=== PATIENT | female | born 1930 | race Caucasian/White ===

== ENCOUNTER → 2016-07-24 | Outpatient (REF) | payer MEDICARE, MEDICAID ==
[~2016-07-24] MED LIST: /ALEN70TA; ASPI1TAB PO; ASPI81TA3; BENZ100C5 PO; BEPR1.5D2 OU; BOOSLIQ PO; BRIM1OPD; BRIM1OPD OU; CALC600T28 PO; CIPR500T3 PO; COSO1SOL3 OD; COSOPT; DORZ2SOL5 OU; FLAG500T PO; LACT3000 PO; LACTAID; LEVO25TA2; LEVO25TA5 PO; LEVO500T32 PO; LIDOPOW; LORA10TA2 PO; METO5TAB2 PO; MULTTAB26 PO; OCEA0.654; OMEP20CA3 PO; OMEP40CA2 PO; PLAV75TA2; PREDPOW16; PREG50CA; PREV30TA; THERGRAN; VIT; VITA400C; VITMTA PO; XALA0.002 OU; XALATAN; XIBROM; [UNRECOGNIZED DRUG - CODE]; [UNRECOGNIZED DRUG - OTHER]; [UNRECOGNIZED DRUG - OTHER]
[2016-07-24 16:21] LABS: ALBUMIN 2.8 GM/DL (3.2-5.2); ALKALINE PHOSPHATASE 111 U/L (45-117); ALT/SGPT 28 U/L (12-78); ANION GAP 10 MEQ/L (8-16); AST/SGOT 23 U/L (15-37); BASO % 0.2 % (0.0-1.0); BILIRUBIN,TOTAL 1.5 MG/DL (0.2-1.0); BLOOD UREA NITROGEN 20 MG/DL (7-18); CALCIUM LEVEL 8.3 MG/DL (8.8-10.2); CARBON DIOXIDE LEVEL 27 MEQ/L (21-32); CHLORIDE LEVEL 93 MEQ/L (98-107); CREATININE FOR GFR 0.58 MG/DL (0.55-1.02); EOS % 0.1 % (0.0-3.0); GLOMERULAR FILTRATION RATE > 60.0 (>32); GLUCOSE, FASTING 108 MG/DL (83-110); LARGE UNSTAINED CELL # 0.1 K/mm3 (0.0-0.4); LARGE UNSTAINED CELL % 0.6 % (0.0-4.0); LYMPH % 5.6 % (24.0-44.0); MEAN CORPUSCULAR HEMOGLOBIN 28.5 pg (27.0-33.0); MEAN CORPUSCULAR HGB CONC 31.9 g/dl (32.0-36.5); MEAN CORPUSCULAR VOLUME 89.1 fl (80.0-96.0); MONO # 1.1 K/mm3 (0.0-0.8); MONO % 6.4 % (0.0-5.0); NEUTROPHILS # 14.3 K/mm3 (1.8-7.7); NEUTROPHILS % 87.1 % (36.0-66.0); PLATELET COUNT, AUTOMATED 321 k/mm3 (150-450); POTASSIUM SERUM 4.2 MEQ/L (3.5-5.1); RED CELL DISTRIBUTION WIDTH 14.1 % (11.5-14.5); SODIUM LEVEL 130 MEQ/L (136-145); TOTAL PROTEIN 6.8 GM/DL (6.4-8.2); WHITE BLOOD COUNT 16.4 K/mm3 (4.0-10.0)
== END ==
LOC: M LABDRAW1 14:11
PROVIDERS: ATTEND Family Medicine
DX: R05 Cough (principal)

== ENCOUNTER 2016-07-26 08:52 | Inpatient (IN) | payer MEDICARE, MEDICAID ==
[~2016-07-26] VITALS: Ht 154.9 cm; Wt 47.9 kg
[~2016-07-26 08:52] MED LIST changes: -BENZ100C5 PO; -BEPR1.5D2 OU; -DORZ2SOL5 OU; -LEVO500T32 PO; -OMEP20CA3 PO; -VITMTA PO
[2016-07-26] MEDS ORDERED: BENZ100C5 PO (09:16)
[2016-07-26] MEDS ORDERED: LEVO500T32 PO (09:16)
[2016-07-26] MEDS ORDERED: ALBUTEROL SULFATE 2.5 MG/0.5 ML INH NEB SOLN INH ONE (10:30)
[2016-07-26] MEDS ORDERED: methylPREDNISolone INJ 125 MG/2 ML VIAL (J2930) IV ONE (10:30)
[2016-07-26 10:41] LABS: BASO % 0.2 % (0.0-1.0); EOS % 0.1 % (0.0-3.0); LARGE UNSTAINED CELL # 0.1 K/mm3 (0.0-0.4); LARGE UNSTAINED CELL % 0.8 % (0.0-4.0); LYMPH % 7.1 % (24.0-44.0); MEAN CORPUSCULAR HEMOGLOBIN 28.7 pg (27.0-33.0); MEAN CORPUSCULAR HGB CONC 32.2 g/dl (32.0-36.5); MEAN CORPUSCULAR VOLUME 89.1 fl (80.0-96.0); MONO # 0.7 K/mm3 (0.0-0.8); MONO % 5.6 % (0.0-5.0); NEUTROPHILS # 10.9 K/mm3 (1.8-7.7); NEUTROPHILS % 86.2 % (36.0-66.0); PLATELET COUNT, AUTOMATED 360 k/mm3 (150-450); WHITE BLOOD COUNT 12.6 K/mm3 (4.0-10.0)
[2016-07-26 10:50] LABS: ALBUMIN 2.5 GM/DL (3.2-5.2); ALBUMIN/GLOBULIN RATIO 0.57 (1.00-1.93); ALKALINE PHOSPHATASE 115 U/L (45-117); ALT/SGPT 47 U/L (12-78); ANION GAP 6 MEQ/L (8-16); AST/SGOT 42 U/L (15-37); BILIRUBIN,DIRECT 0.3 MG/DL (0.0-0.2); BLOOD UREA NITROGEN 15 MG/DL (7-18); CALCIUM LEVEL 8.4 MG/DL (8.8-10.2); CARBON DIOXIDE LEVEL 30 MEQ/L (21-32); CHLORIDE LEVEL 95 MEQ/L (98-107); GLOMERULAR FILTRATION RATE > 60.0 (>32); GLUCOSE, FASTING 104 MG/DL (83-110); POTASSIUM SERUM 4.1 MEQ/L (3.5-5.1); SODIUM LEVEL 131 MEQ/L (136-145); THYROXINE (T4) 9.7 UG/DL (4.5-12.0); TOTAL PROTEIN 6.9 GM/DL (6.4-8.2)
[2016-07-26 10:56] LABS: ABG BASE EXCESS -0.3 (-2.0-2.0); ABG HCO3 22.1 MEQ/L (22.0-26.0); ABG PARTIAL PRESSURE O2 91.7 mmHg (75.0-100.0); ABG STANDARD HCO3 24.2 MEQ/L (22.0-26.0); ABG pH (ARTERIAL) 7.485 UNITS (7.350-7.450)
--- NOTE | 2016-07-26 10:58 | REP ---
PORTABLE CHEST: Single AP view of the chest is performed. Comparison 07/24/2016 and 03/12/2015. There is mild cardiomegaly. There does appear to be vascular congestion. There are diffuse increased interstitial markings bilaterally suggesting interstitial edema and/or fibrosis. No consolidation is seen. Findings are similar to the prior study of 03/12/2015. There is calcification of the thoracic aorta. The mediastinal silhouette is not definitely changed. IMPRESSION: Cardiomegaly with vascular congestion and diffuse interstitial edema and/or fibrosis. Findings are similar to the prior exam of 03/12/2015. Signed by Robert Rand MD 07/27/2016 04:40 P
[2016-07-26] MEDS ORDERED: VITMTA PO (11:39)
[2016-07-26] MEDS ORDERED: OMEP20CA3 PO (11:39)
[2016-07-26] MEDS ORDERED: BEPR1.5D2 OU (11:41)
[2016-07-26] MEDS ORDERED: DORZ2SOL5 OU (11:43)
[2016-07-26] MEDS ORDERED: ACETAMINOPHEN TAB 650MG DOSE (2X325MG) PO PRN (12:00)
[2016-07-26] MEDS ORDERED: ONDANSETRON 4MG/2ML VIAL (J2405) IV PRN (12:00)
[2016-07-26] MEDS ORDERED: BENZONATATE 100 MG CAP PO PRN (12:00)
[2016-07-26] MEDS ORDERED: BISACODYL 5 MG TAB PO PRN (12:00)
[2016-07-26] MEDS: FUROSEMIDE 40 MG/4 ML VIAL (J1940) IV SCH ×2 (12:49→17:17)
--- NOTE | 2016-07-26 13:21 | HPE ---
DATE OF ADMISSION: 07/26/2016 PRIMARY CARE PROVIDER: Delmi Pruitt CODE STATUS: FULL CODE. Healthcare proxy is Danay Eastman. CHIEF COMPLAINT: Dyspnea on exertion. HISTORY OF PRESENT ILLNESS: 86-year-old female presents to the emergency department with worsening symptoms of shortness of breath, dyspnea on exertion, chest congestion, and has intermittent productive cough with no fevers, chills, or rigors for the last week or so. She was seen and treated by her primary care provider for lower respiratory infection, has been on Levaquin which has not seemed to have helped her symptoms much, and with presentation to the emergency department she was given a nebulizer which did little to help out. She is on supplemental oxygen. BNP is elevated, and her chest x-ray does have vascular cephalization, congestion suggestive of heart failure. At any rate, she does appear to be too weak to return home with generalized weakness and fall risk, and hospitalist was called for consult. Additionally, the emergency room (ER) physician did relate to me that there appears to be a new murmur which has not been recorded anywhere. She had a 2D echo done in 2005, which showed 70% left ventricular ejection fraction, moderate aortic valve sclerosis, moderate mitral valve annular calcification with marginal inflow tract obstruction and trace insufficiency. She has had lower extremity edema, dyspnea on exertion, paroxysmal nocturnal dyspnea (PND), orthopnea. The majority of the information was gathered from the family since she does have some issues with mild cognitive dysfunction and what appears to be some dementia. PAST MEDICAL HISTORY: Cataracts. Gastroesophageal reflux disease (GERD). Glaucoma. Hyperlipidemia. Hypothyroidism. Lactose intolerance. Spinal stenosis. Transient ischemic attack (TIA). Cognitive impairment, likely early dementia. PAST SURGICAL HISTORY: Eye surgery. Cholecystectomy. Cataract surgery, bilaterally. Appendectomy. Pleurectomy, bilaterally. SOCIAL HISTORY: She is a former smoker. She lives with her son and ebmbmlfz-ko-ali. Denies any alcohol use, drug use. No recent travel. No sick contacts. FAMILY HISTORY: Noncontributory due to advanced age. ALLERGIES: Are to LYRICA. HOME MEDICATIONS: - aspirin 81 mg daily - Tessalon Perles 100 mg three times a day as needed, cough - Dulcolax suppository as needed - brimonidine ophthalmic drops 1 drop both eyes twice a day - Os-David D daily - dorzolamide/Timolol eye drops - latanoprost 0.005% ophthalmic solution 1 drop both eyes nightly - Synthroid 25 mcg daily - multivitamin one tablet daily - Prilosec 20 mg twice a day REVIEW OF SYSTEMS: CONSTITUTIONAL: No fevers, chills, rigors. She has had generalized weakness which has been progressively worse for the last week or so with lower extremity edema and decreased appetite but no weight loss. HEENT: No headache, lightheaded, dizziness. No blurry vision, double vision, tinnitus. No facial droop. No slurred speech. No difficulty with swallowing. PULMONARY: Dyspnea on exertion, intermittent productive cough, recently treated for lower respiratory infection. No hemoptysis. CARDIOVASCULAR: She denies chest pain, but she has had some chest tightness, difficulty with breathing, has PND, orthopnea, and lower extremity edema, but no chest pain or palpitations. GASTROINTESTINAL (GI): No nausea, vomiting, diarrhea. She does have decreased appetite for the last week or so according to the family. Bowel movements are regular. No hematochezia or melena. GENITOURINARY (): No dysuria, frequency, hematuria. MUSCULOSKELETAL: No bone, muscle, or joint pain, swelling, erythema, but generalized weakness is again noted. NEUROLOGIC: No paresthesias or paralysis. She does have a prior history of TIA with no deficits. PSYCHIATRIC: No history of depression. No suicidal ideation. No audiovisual hallucinations. SKIN: No skin lesions or abrasions. No breakdown. 12-point review of systems complete. Pertinent positives are listed. PHYSICAL EXAMINATION: Temperature is 97.7, pulse 86 and regular, respiratory rate 17, blood pressure 116/60, SPO2 is 92% currently on room air. GENERAL: The patient appears to be in no acute distress. She is alert, pleasant, has some mild cognitive impairment with some mild confusion. Otherwise, she is pleasant talk to. HEENT: Unremarkable. She did have some jugular venous distention (JVD) noted, approximately 3 cm. HEART: Regular rate. She does have a pansystolic murmur noted along both sides of the lower sternal border. LUNG EXAM: She does have diminished bibasilar breath sounds with crackles and expiratory wheeze noted. ABDOMEN: Soft, nontender, nondistended. Positive bowel sounds. No masses. No rebound. EXTREMITIES: She does have 2+ pitting edema at the ankles and the dorsum of the feet. Otherwise, pulses are intact. Sensation is intact. LABORATORY DATA: White count 12.6, hemoglobin 13.1, platelets 360,000. Sodium 131, potassium 4.1, chloride 95, bicarb 30, anion gap 6, BUN is 15, creatinine 0.70, glucose is 104, calcium 8.4, lactic acid is 1.6, AST 42, ALT is 47, alkaline phosphatase is 115, total bilirubin 1.0, CK 30, CK-MB 1.3, troponin less than 0.02. BNP is 690. Albumin 2.5. TSH 2.750. ABG shows pH of 7.485 and pCO2 of 30. Influenza A and B are negative. Blood cultures are pending times two. Chest x-ray: Cardiomegaly noted with vascular congestion and cephalization. Diffuse interstitial edema versus fibrosis. Findings similar to prior exam on 03/12/2015. IMPRESSION: Ms. Eastman is an 86-year-old female with worsening symptoms of dyspnea on exertion, shortness of breath, intermittent productive sputum, and wheeze and appears to be in an acute exacerbation of congestive heart failure. She does have a pretty significant pansystolic murmur that I do not find documented anywhere on her electronic medical record (EMR), and this will need further workup as well. PROBLEM LIST: 1. Acute exacerbation of congestive heart failure (CHF). 2. Pansystolic murmur, history of moderate aortic valve sclerosis with moderate mitral valve annular calcification. Marginal inflow tract obstruction with trace insufficiency. 3. Dementia with mild cognitive impairment. 4. Gastroesophageal reflux disease (GERD). 5. Hyperlipidemia. 6. Hypothyroidism. 7. Spinal stenosis. 8. Cataracts and glaucoma. 9. History of transient ischemic attack (TIA). PLAN: The patient will be admitted to progressive care unit (PCU) on telemetry per Dr. Kramer's service. Will repeat a 2D echo. Gentle diuresis with fluid restriction. Will cycle her cardiac marker panel. Monitor strict intake and output (I's and O's), daily weight, and monitor renal function. Continue her home medications. Deep venous thrombosis (DVT) prophylaxis with subcu heparin. DISPOSITION: Prognosis is guarded due to significant pansystolic murmur with associated congestive heart failure. Did have a discussion with patient's family members, specifically, her son regarding advance directives, and currently she has a healthcare proxy in place, but no further discussions have been made regarding advance directives. I would like to see how she does with her 2D echo in response to diuresis and will reevaluate what the goals of care are tomorrow. VIDYA
[2016-07-26] MEDS: HEPARIN SOD (PORCINE) 5000 UNITS/ML VIAL SC SCH ×2 (14:15→22:09)
[2016-07-26 20:59] VITALS: BP 115/62
[2016-07-26] MEDS: OMEPRAZOLE 20 MG CAP PO SCH (22:08)
[2016-07-26] MEDS: BRIMONIDINE 0.1% OPHTH SOLN 5 ML OU SCH (22:09)
[2016-07-26] MEDS: COSOPT OCUMETER PLUS 10ML (DORZOLAMIDE/TIMOLOL) OU SCH (22:09)
[2016-07-26] MEDS: LATANOPROST 0.005% OPHTH SOLN 2.5 ML OU SCH (22:09)
[2016-07-26 23:59] VITALS: BP 120/57
[2016-07-27] VITALS (8 sets, daily range): BP systolic 83–138; BP diastolic 42–66
[2016-07-27 05:20] LABS: MEAN CORPUSCULAR HEMOGLOBIN 28.5 pg (27.0-33.0); MEAN CORPUSCULAR HGB CONC 32.5 g/dl (32.0-36.5); MEAN CORPUSCULAR VOLUME 87.6 fl (80.0-96.0); WHITE BLOOD COUNT 9.6 K/mm3 (4.0-10.0)
[2016-07-27 05:52] LABS: ANION GAP 8 MEQ/L (8-16); CARBON DIOXIDE LEVEL 30 MEQ/L (21-32); CHLORIDE LEVEL 97 MEQ/L (98-107); CREATININE FOR GFR 0.59 MG/DL (0.55-1.02); GLOMERULAR FILTRATION RATE > 60.0 (>32); GLUCOSE, FASTING 154 MG/DL (83-110); POTASSIUM SERUM 3.6 MEQ/L (3.5-5.1); SODIUM LEVEL 135 MEQ/L (136-145)
[2016-07-27] MEDS: HEPARIN SOD (PORCINE) 5000 UNITS/ML VIAL SC SCH ×3 (05:56→20:33)
[2016-07-27] MEDS: LEVOTHYROXINE 0.025 MG TAB (25 MCG) PO SCH (05:56)
[2016-07-27 05:59] LABS: BLOOD UREA NITROGEN 23 MG/DL (7-18)
[2016-07-27] MEDS: CALCIUM/VITAMIN D 500 MG TAB PO SCH (08:47)
[2016-07-27] MEDS: OMEPRAZOLE 20 MG CAP PO SCH ×2 (08:47→20:33)
[2016-07-27] MEDS: MULTIVITAMINS/MINERALS THERAP 1 TAB PO SCH (08:48)
[2016-07-27] MEDS: ASPIRIN 81 MG ENTERIC TAB PO SCH (08:48)
[2016-07-27] MEDS: COSOPT OCUMETER PLUS 10ML (DORZOLAMIDE/TIMOLOL) OU SCH ×2 (08:51→20:33)
[2016-07-27] MEDS: BRIMONIDINE 0.1% OPHTH SOLN 5 ML OU SCH ×2 (08:51→20:33)
[2016-07-27] MEDS: FUROSEMIDE 40 MG/4 ML VIAL (J1940) IV SCH (08:51)
--- NOTE | 2016-07-27 09:14 | ECGEPIP ---
Stationary ECG Study [facility] - ED Test Date: 2016-07-26 Pat Name: SAE OTT Department: Room: [place] [address] Gender: F Pewter Caster: SONNY : 1930 Requested By: Marquis Le Order Number: [id number] Reading MD: Magalie Madison Measurements Intervals [place] Rate: 87 P: 70 IA: 160 QRS: -9 QRSD: 86 T: 60 QT: 361 QTc: 436 Interpretive Statements SINUS RHYTHM MINIMAL VOLTAGE CRITERIA FOR LVH, CONSIDER NORMAL VARIANT SIMILAR 03/12/15 Electronically Signed On 07-27-2016 9:14:11 EDT by Magalie Madison
[2016-07-27] MEDS ORDERED: FUROSEMIDE 20 MG TAB PO ONE (14:00)
--- NOTE | 2016-07-27 14:11 | IPN ---
DATE: 07/27/2016 An 86-year-old female seen at bedside eating her breakfast. No overnight issues reported. She feels that she is breathing easier and objectively, she does appear to be not struggling to catch her breath. Her qopihuvv-hl-boz is present at bedside. She does appear to be pleased with how her mother has progressed since yesterday. OBJECTIVE: Temperature is 98.5, pulse 80, respiratory rate is 20, blood pressure is 104/51, SPO2 is 96% on room air. GENERAL: The patient appears to be in no acute distress. She is alert and oriented. HEENT: Unremarkable. Jugular venous distention (JVD) unappreciated. LUNGS: Decreased bibasilar breath sounds, otherwise clear. HEART: Regular rate and rhythm with pansystolic murmur at the bottom bilateral sternal borders. ABDOMEN: Soft. EXTREMITIES: No edema. No calf tenderness. LABORATORY DATA: White count is 9.6, hemoglobin 11.4, and platelets 301. Sodium 135 up from 131, potassium 3.6, chloride 97, bicarbonate 30, anion gap 8, BUN is 23, creatinine 0.59, glucose is 154, calcium 8.0, phosphorus 4.0, troponin is less than 0.02 on three occasions. Influenza A and B are negative. Blood cultures pending times two for 24 hours. A 2D echocardiogram is pending at this time. ASSESSMENT AND PLAN: 1. Pansystolic murmur which appears to be new for this patient. A 2D echocardiogram is pending. 2. Acute exacerbation of congestive heart failure. She does appear to be doing well with diuresing. We will continue with fluid restriction and plan on switching her over to oral Lasix. 3. Dementia with mild cognitive impairment, stable. 4. Gastroesophageal reflux disease (GERD), stable. 5. Hyperlipidemia, stable. 6. Hypothyroidism, stable. 7. History of spinal stenosis. No current issues. 8. Cataracts and glaucoma, stable. 9. History of transient ischemic attacks (TIAs). DISPOSITION: We will see how she does over the next 24-48 hours. Check the 2D echocardiogram. If she is doing well either tomorrow or the next day on Lasix dosing, we will consider discharging her home. She may not need any assistance from public health since she does live at home with her son and [id number]-ott and they do appear to have a good support network.
--- NOTE | 2016-07-27 19:25 | ECHO ---
DATE OF PROCEDURE:07/27/2016 REFERRING PHYSICIAN: Ramesh Kramer DO INDICATION: Heart murmur. HEIGHT: 155 cm WEIGHT: 49 kg DIMENSIONS: IVS: 1.0 LV: 4.9 LVPW: 1.1 LA: 4.3 Aorta: 2.7 FINDINGS: The study is of good technical quality. Left ventricle is of normal size and hyperdynamic contractility with estimated ejection fraction (EF) approximately 70-75%. Right ventricle does not appear grossly enlarged. Left atrium is severely enlarged. Right atrium is probably normal size. Aortic valve is heavily calcific. I cannot comment on its structure but by 2-D imaging I suspect severe aortic stenosis. There are also heavy degenerative abnormalities of mitral valve with very prominent mitral annular calcifications and thickening of mitral leaflets. Cannot rule out rheumatic process. Tricuspid and pulmonic valves appear normal. No pericardial effusion is noted. Inferior vena cava is dilated and there is no appreciable collapse with respiration indicative of likely very high central venous pressure. Aortic root is normal. Aortic arch was not well seen. Abdominal aorta appears normal. Doppler interrogation of aortic valve reveals mild insufficiency and probably severe stenosis, even though the measured mean gradient is only 27 mmHg. Calculated aortic valve area was only 0.4 cm2 which is likely inaccurate. There is severe mitral insufficiency with mitral regurgitation (MR) jet oriented towards the roof of left atrium and moderate stenosis (mean gradient 6mmHg). There is mild or kafg-xe-[id number] tricuspid insufficiency with calculated pulmonary artery pressure in 60's corresponding to moderately severe pulmonary hypertension. Pulmonic valve exhibits mild insufficiency. Mitral inflow pattern and tissue Doppler imaging of mitral annulus reveal grade 2 diastolic dysfunction (E velocity on mitral inflow is 211 cm/sec, E prime velocity septal 5.6 and lateral 4.7 cm/sec). CONCLUSIONS: 1. Study is of good technical quality. 2. Normal left ventricle (LV) size with hyperdynamic LV systolic function and grade 2 diastolic dysfunction. 3. 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 4. Probably severe aortic stenosis (mean gradient 27 mmHg, but poor quality measurement). 5. Moderately severe pulmonary hypertension. 6. Very high central venous pressure under COMMENT: Subacute bacterial endocarditis (SBE) prophylaxis is not recommended. If the patient is still considered a surgical candidate then she should be evaluated for possibility of aortic and mitral valve surgery. [facility]
[2016-07-27] MEDS: LATANOPROST 0.005% OPHTH SOLN 2.5 ML OU SCH (20:34)
[2016-07-28 04:00] VITALS: BP 108/66
[2016-07-28] MEDS: HEPARIN SOD (PORCINE) 5000 UNITS/ML VIAL SC SCH ×3 (05:48→20:56)
[2016-07-28] MEDS: LEVOTHYROXINE 0.025 MG TAB (25 MCG) PO SCH (05:48)
[2016-07-28 06:14] LABS: MEAN CORPUSCULAR HEMOGLOBIN 30.7 pg (27.0-33.0); MEAN CORPUSCULAR HGB CONC 34.5 g/dl (32.0-36.5); WHITE BLOOD COUNT 12.2 K/mm3 (4.0-10.0)
[2016-07-28 06:27] LABS: BLOOD UREA NITROGEN 26 MG/DL (7-18); CREATININE FOR GFR 0.62 MG/DL (0.55-1.02); GLUCOSE, FASTING 85 MG/DL (83-110)
[2016-07-28 06:28] LABS: ANION GAP 6 MEQ/L (8-16); CALCIUM LEVEL 8.1 MG/DL (8.8-10.2); CARBON DIOXIDE LEVEL 32 MEQ/L (21-32); CHLORIDE LEVEL 98 MEQ/L (98-107); GLOMERULAR FILTRATION RATE > 60.0 (>32); PHOSPHORUS LEVEL 2.9 MG/DL (2.5-4.9); POTASSIUM SERUM 3.7 MEQ/L (3.5-5.1); SODIUM LEVEL 136 MEQ/L (136-145)
[2016-07-28 07:35] VITALS: BP 111/56
[2016-07-28] MEDS: MULTIVITAMINS/MINERALS THERAP 1 TAB PO SCH (09:44)
[2016-07-28] MEDS: DOXYCYCLINE HYCLATE 100 MG TAB PO SCH ×2 (09:45→20:56)
[2016-07-28] MEDS: CALCIUM/VITAMIN D 500 MG TAB PO SCH (09:45)
[2016-07-28] MEDS: OMEPRAZOLE 20 MG CAP PO SCH ×2 (09:45→20:56)
[2016-07-28] MEDS: FUROSEMIDE 20 MG TAB PO SCH (09:45)
[2016-07-28] MEDS: ASPIRIN 81 MG ENTERIC TAB PO SCH (09:45)
[2016-07-28] MEDS: BRIMONIDINE 0.1% OPHTH SOLN 5 ML OU SCH ×2 (09:46→20:55)
[2016-07-28] MEDS: COSOPT OCUMETER PLUS 10ML (DORZOLAMIDE/TIMOLOL) OU SCH ×2 (09:46→20:55)
[2016-07-28 14:15] VITALS: BP 105/55
--- NOTE | 2016-07-28 15:31 | IPN ---
DATE: 07/28/2016 86-year-old female seen at bedside resting comfortably. She has diuresed well. She is on room air. Currently her daughter is present at bedside as well to go over the findings of her echo. Overnight there were no issues. No chest pain, nausea, vomiting. She is tolerating her morning breakfast. OBJECTIVE: Temperature is 90.1, pulse 83, respiratory rate is 20, BP 111/56, SPO2 is 97% on room air. General: The patient appears to be in no acute distress. Is alert and oriented. HEENT: Unremarkable. Lungs: Clear auscultation bilaterally. Heart: Regular rate and rhythm. Pansystolic murmur at the lower sternal border bilaterally. Abdomen: Soft. Extremities: No edema or calf tenderness. LABORATORY DATA White count 12.2, hemoglobin 0.5, platelets 352,000. Sodium 136, potassium 3.7, chloride 90, bicarb 37, anion gap 6, BUN is 26, creatinine 0.62, glucose 85, albumin 2.0. Influenza A and B are negative. Blood cultures negative for 48 hours times two. ASSESSMENT/PLAN: 1. 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 She is diuresing well and symptomatically she is much improved. 2. Acute exacerbation of congestive heart failure. Again will continue on oral Lasix with fluid restriction. 3. Dementia with mild cognitive impairment. Stable. 4. Gastroesophageal reflux disease. Stable. 5. Hyperlipidemia. Stable. 6. Hypothyroidism, stable. 7. History of spinal stenosis. No limitations currently. 8. Cataracts and glaucoma. Stable. 9. History of TIAs. No deficits. DISPOSITION: I did have a lengthy discussion with the patient's hogxdjrk-st-omu, Danay, who is her healthcare proxy. We did have a discussion regarding her long-term prognosis, which is poor and the risk of surgical repair of a bivalvular heart disease. I did discuss with Dr. Lopez, who has agreed to see the patient as an outpatient as well. I would like to keep her one more night as we adjust her Lasix. Anticipate home discharge tomorrow.
[2016-07-28 20:03] VITALS: BP 110/58
[2016-07-28] MEDS: LATANOPROST 0.005% OPHTH SOLN 2.5 ML OU SCH (20:55)
[2016-07-28 22:00] VITALS: BP 110/58
[2016-07-29 06:00] VITALS: BP 118/61
[2016-07-29 06:13] LABS: MEAN CORPUSCULAR HEMOGLOBIN 28.7 pg (27.0-33.0); MEAN CORPUSCULAR HGB CONC 32.2 g/dl (32.0-36.5); MEAN CORPUSCULAR VOLUME 89.2 fl (80.0-96.0); WHITE BLOOD COUNT 8.6 K/mm3 (4.0-10.0)
[2016-07-29] MEDS: LEVOTHYROXINE 0.025 MG TAB (25 MCG) PO SCH (06:20)
[2016-07-29] MEDS: HEPARIN SOD (PORCINE) 5000 UNITS/ML VIAL SC SCH (06:20)
[2016-07-29 06:29] LABS: ALBUMIN 2.2 GM/DL (3.2-5.2); ANION GAP 8 MEQ/L (8-16); BLOOD UREA NITROGEN 22 MG/DL (7-18); CALCIUM LEVEL 7.9 MG/DL (8.8-10.2); CARBON DIOXIDE LEVEL 29 MEQ/L (21-32); CHLORIDE LEVEL 100 MEQ/L (98-107); CREATININE FOR GFR 0.56 MG/DL (0.55-1.02); GLOMERULAR FILTRATION RATE > 60.0 (>32); GLUCOSE, FASTING 96 MG/DL (83-110); POTASSIUM SERUM 3.7 MEQ/L (3.5-5.1); SODIUM LEVEL 137 MEQ/L (136-145)
[2016-07-29] MEDS ORDERED: DOXY10CA PO (09:34)
[2016-07-29] MEDS ORDERED: FURO20TA2 PO (09:34)
[2016-07-29] MEDS: FUROSEMIDE 20 MG TAB PO SCH (09:43)
[2016-07-29] MEDS: OMEPRAZOLE 20 MG CAP PO SCH (09:43)
[2016-07-29] MEDS: CALCIUM/VITAMIN D 500 MG TAB PO SCH (09:43)
[2016-07-29] MEDS: BRIMONIDINE 0.1% OPHTH SOLN 5 ML OU SCH (09:44)
[2016-07-29] MEDS: COSOPT OCUMETER PLUS 10ML (DORZOLAMIDE/TIMOLOL) OU SCH (09:44)
[2016-07-29] MEDS: DOXYCYCLINE HYCLATE 100 MG TAB PO SCH (09:44)
[2016-07-29] MEDS: MULTIVITAMINS/MINERALS THERAP 1 TAB PO SCH (09:44)
[2016-07-29] MEDS: ASPIRIN 81 MG ENTERIC TAB PO SCH (09:44)
--- NOTE | 2016-07-29 15:09 | DSES ---
DATE OF ADMISSION: 07/26/2016 DATE OF DISCHARGE: 07/29/2016 PRIMARY CARE PROVIDER: Delmi Pruitt MD CODE STATUS: FULL CODE. CONSULTATIONS: None. PROCEDURES: None. COMPLICATIONS: None. ADMISSION/DISCHARGE DIAGNOSES: 1. Dyspnea on exertion with pulmonary edema and congestive heart failure. 2. 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 3. Severe aortic stenosis. 4. Congestive heart failure with diastolic dysfunction. 5. Pulmonary hypertension. 6. Dementia with mild cognitive impairment. 7. Gastroesophageal reflux disease (GERD). 8. Hyperlipidemia. 9. Hypothyroidism. 10. History of spinal stenosis. 11. Cataracts and glaucoma. 12. Prior history of transient ischemic attacks (TIAs). BRIEF HOSPITAL COURSE: Ms. Eastman is an 86-year-old female who presented to the emergency department on 07/26/2016 after having increasing shortness of breath and dyspnea on exertion. Initially, productive cough that had changed to a nonproductive cough and questionable fevers, approximately a week or so ago. She was initially treated with Levaquin for a lower respiratory infection and her symptomatology has continued to get worse and the patient thought that she should have further evaluation through the emergency department. While there, she was noted to have some lower extremity edema, bilateral wheeze and crackles on lung examination. Jugular venous distention (JVD) was noted and a pansystolic heart murmur was noted that we were unable to confirm by prior records and the EMR. She was admitted for further diuresing due to the clinical picture of volume overload. Her white count did slightly spike. She had a low grade temperature increase and we start her on doxycycline as well. She has diuresed well. We did have a discussion with family regarding Lasix, fluid restriction, and we went over her findings on her 2D echo. Her 2D echo on 07/27/[address] Lopez showed a left ventricular ejection fraction of 70-75%. She had normal left ventricular size, hyperdynamic left ventricular systolic function and grade 2 diastolic dysfunction. 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 Moderately severe pulmonary hypertension was noted and very high central venous pressure. At any rate, she responded to therapy well and was felt to be at baseline. Examination today temperature is 97.9, pulse 85, respiratory rate is 19, blood pressure 118/61, SpO2 92% on room air. GENERAL: She is alert, but pleasantly confused. HEENT: Unremarkable. Throat clear. LUNGS: Diminished bibasilar breath sounds, otherwise clear. HEART: Regular rate and rhythm. ABDOMEN: Soft. EXTREMITIES: No edema. No calf tenderness. LABORATORY DATA: White count 8.6, hemoglobin 12.3, and platelets 418,000. Sodium 137, potassium 3.7, chloride 100, bicarb 29, anion gap 8, BUN is 22, creatinine 0.56, glucose 96, calcium 7.9, phosphorus 3.0, albumin is 2.2. Her cardiac enzymes remained negative and she is not demonstrating any acute changes on her EKG. Blood cultures were negative times two. Influenza A and B are negative. Chest x-ray done on admission did show cardiomegaly with vascular congestion and diffuse interstitial edema versus fibrosis. DISCHARGE CONDITION: Good. DISPOSITION: Discharged to home. DISCHARGE MEDICATIONS: - Lasix 20 mg daily - doxycycline 100 mg twice a day for seven more days - aspirin 81 mg daily - Tessalon Perles 100 mg three times a day as needed - Bepreve 1.5% one drop each eye daily - Alphagan one drop each eye twice a day - calcium with vitamin D one tablet daily - dorzolamide/timolol one drop both eyes twice a day - Lactaid one tablet at bedtime - Xalatan one drop each eye at bedtime - Synthroid 25 mcg daily - multivitamin one tablet daily - omeprazole 20 mg twice a day DISCHARGE INSTRUCTIONS: Discharge to home. Activity as tolerated. Regular diet. 1800 mL fluid restriction per day. Continue on Lasix daily. She should see Dr. 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 At any rate, I will defer this to Dr. Lopez to discuss further with her and her family as an outpatient. See Delmi Pruitt in a week. Seek medical attention should symptoms worsen or progress. We also did fill out paperwork for her to have public health and she will return home to the care of her son and gdfmpeer-ku-lar. Discharge took 35 minutes.
== END 2016-07-29 12:26 | disposition home health service (06) | DRG 293 ==
LOC: M ED 12:40 → M ED INP 12:41 → M PCU 20:47 → M MSPAV 07-28 14:04
PROVIDERS: ADMIT Hospitalist; ATTEND Hospitalist
DX: I50.33 Acute on chronic diastolic (congestive) heart failure (principal); F03.90 Unspecified dementia, unspecified severity, without behavioral disturbance, psychotic disturbance, mood disturbance, and anxiety; K21.9 Gastro-esophageal reflux disease without esophagitis; H40.9 Unspecified glaucoma; E78.5 Hyperlipidemia, unspecified; I27.2 Other secondary pulmonary hypertension; I08.0 Rheumatic disorders of both mitral and aortic valves; E03.9 Hypothyroidism, unspecified; R01.1 Cardiac murmur, unspecified; E73.9 Lactose intolerance, unspecified; Z86.73 Personal history of transient ischemic attack (TIA), and cerebral infarction without residual deficits; Z79.82 Long term (current) use of aspirin; Z79.899 Other long term (current) drug therapy; Z87.891 Personal history of nicotine dependence; Z88.8 Allergy status to other drugs, medicaments and biological substances

== ENCOUNTER → 2016-08-07 | Outpatient (REF) | payer MEDICARE, MEDICAID ==
[~2016-08-07] MED LIST changes: +BENZ100C5 PO; +BEPR1.5D2 OU; +DORZ2SOL5 OU; +DOXY10CA PO; +FURO20TA2 PO; +LEVO500T32 PO; +OMEP20CA3 PO; +VITMTA PO
[2016-08-07 14:53] LABS: ANION GAP 5 MEQ/L (8-16); BLOOD UREA NITROGEN 22 MG/DL (7-18); CALCIUM LEVEL 8.8 MG/DL (8.8-10.2); CARBON DIOXIDE LEVEL 34 MEQ/L (21-32); CHLORIDE LEVEL 98 MEQ/L (98-107); GLOMERULAR FILTRATION RATE > 60.0 (>32); GLUCOSE, FASTING 111 MG/DL (83-110); POTASSIUM SERUM 4.2 MEQ/L (3.5-5.1); SODIUM LEVEL 137 MEQ/L (136-145)
== END ==
LOC: M SHH 14:15
PROVIDERS: ATTEND Family Medicine
DX: I50.32 Chronic diastolic (congestive) heart failure (principal)

== ENCOUNTER → 2016-10-04 | Outpatient (REF) | payer MEDICARE, MEDICAID ==
[~2016-10-04] MED LIST changes: +DOXY100T2 PO; -DOXY10CA PO; +LEVO500T3 PO; -LEVO500T32 PO; -XALA0.002 OU; +XALA0.007 OU
== END ==
LOC: M LAB REF 17:12
PROVIDERS: ATTEND Family Medicine
DX: R35.0 Frequency of micturition (principal)

== ENCOUNTER → 2016-11-27 | Outpatient (REF) | payer MEDICARE, MEDICAID | LOC: M LAB REF 13:23 | PROVIDERS: ATTEND Family Medicine | DX: R53.1 Weakness (principal) ==

== ENCOUNTER → 2017-08-21 | Outpatient (REF) | payer MEDICARE, MEDICAID ==
[2017-08-21 13:42] LABS: APPEARANCE, URINE CLEAR (CLEAR); BACTERIA, URINE AUTO NEGATIVE (NEGATIVE); BILIRUBIN, URINE AUTO NEGATIVE (NEGATIVE); BLOOD, URINE BLOOD NEGATIVE (NEGATIVE); COLOR, URINE YELLOW (YELLOW); GLUCOSE, URINE (UA) AUTO NEGATIVE (NEGATIVE); KETONE, URINE AUTO NEGATIVE (NEGATIVE); LEUKOCYTE ESTERASE, URINE AUTO TRACE (NEGATIVE); NITRITE, URINE AUTO NEGATIVE (NEGATIVE); PROTEIN, URINE AUTO NEGATIVE (NEGATIVE); RBC, URINE AUTO 3 /HPF (0-3); SPECIFIC GRAVITY URINE AUTO 1.004 (1.002-1.035); SQUAMOUS EPITHELIAL CELL UR AU 0 /HPF (0-6); UROBILINOGEN, URINE AUTO 0.2 mg/dL (0.0-2.0); WBC, URINE AUTO 1 /HPF (0-3)
== END ==
LOC: SKLABADC 12:45
DX: R41.0 Disorientation, unspecified (principal)
CPT/HCPCS: 81001

== ENCOUNTER → 2017-12-20 | Outpatient (CLI) | payer MEDICARE, MEDICAID ==
[2017-12-20 13:32] LABS: ANION GAP 8 MEQ/L (8-16); BLOOD UREA NITROGEN 25 MG/DL (7-18); CALCIUM LEVEL 8.7 MG/DL (8.8-10.2); CARBON DIOXIDE LEVEL 35 MEQ/L (21-32); CHLORIDE LEVEL 98 MEQ/L (98-107); GLOMERULAR FILTRATION RATE > 60.0 (>32); GLUCOSE, FASTING 104 MG/DL (70-100); POTASSIUM SERUM 3.7 MEQ/L (3.5-5.1); SODIUM LEVEL 141 MEQ/L (136-145)
== END ==
LOC: M LAB 10:29
DX: I50.33 Acute on chronic diastolic (congestive) heart failure (principal); I51.7 Cardiomegaly
CPT/HCPCS: 71046

== ENCOUNTER → 2018-02-19 | Outpatient (REF) | payer MEDICARE, MEDICAID, OTHER ==
[2018-02-19 10:32] LABS: ANION GAP 5 MEQ/L (8-16); BLOOD UREA NITROGEN 22 MG/DL (7-18); CALCIUM LEVEL 8.7 MG/DL (8.8-10.2); CARBON DIOXIDE LEVEL 35 MEQ/L (21-32); CHLORIDE LEVEL 97 MEQ/L (98-107); CHOLESTEROL LEVEL 167 MG/DL (<200); CHOLESTEROL RISK RATIO 4.394 (<5); CREATININE FOR GFR 0.94 MG/DL (0.55-1.30); FREE T4 1.19 NG/DL (0.76-1.46); GLOMERULAR FILTRATION RATE 59.8 (>32); GLUCOSE, FASTING 98 MG/DL (70-100); HDL CHOLESTEROL 38 MG/DL (>40); LDL CHOLESTEROL 112 MG/DL (<100); NON-HDL-C 129 MG/DL; POTASSIUM SERUM 3.8 MEQ/L (3.5-5.1); SODIUM LEVEL 137 MEQ/L (136-145); TRIGLYCERIDES LEVEL 86 MG/DL (<150)
== END ==
LOC: SKLABADC 09:07
DX: J01.90 Acute sinusitis, unspecified (principal)
CPT/HCPCS: 84443

== ENCOUNTER → 2018-03-28 | Outpatient (REF) | payer MEDICARE, MEDICAID, OTHER ==
[~2018-03-28] MED LIST changes: +BENZ-18 PO; -BENZ100C5 PO; -LORA10TA2 PO; +LORA10TA3 PO
== END ==
LOC: M LAB REF 12:39
PROVIDERS: ATTEND Physician Assistant
DX: R35.0 Frequency of micturition (principal)

== ENCOUNTER 2018-07-06 07:48 | Inpatient (IN) | payer MEDICARE, MEDICAID ==
[~2018-07-06] VITALS: Ht 154.9 cm; Wt 46.6 kg
[~2018-07-06 07:48] MED LIST changes: -ASPI1TAB PO; +ASPI81TA26 PO
[2018-07-06] MEDS ORDERED: OMEP-218 PO (07:59)
[2018-07-06] MEDS ORDERED: XALA0.007 OU (07:59)
[2018-07-06] MEDS ORDERED: [UNRECOGNIZED DRUG - CODE] PO (07:59)
[2018-07-06] MEDS ORDERED: TIMO0.5S29 (07:59)
[2018-07-06] MEDS ORDERED: TORS20TA2 PO ×2 (07:59→10:25)
[2018-07-06] MEDS ORDERED: ONDANSETRON 4MG/2ML VIAL (J2405) IV ONE (08:15)
[2018-07-06] MEDS ORDERED: NS 500 ML IV ONE ×3 (08:15→21:45)
--- NOTE | 2018-07-06 08:33 | REP ---
Clinical: Abdominal pain. Technique: Upright view of the chest with supine and upright views of the abdomen and pelvis. Findings: Frontal upright view of the chest demonstrates cardiomegaly and chronic changes. No free air below the diaphragm to suspect pneumoperitoneum. Supine and upright views of the abdomen and pelvis demonstrate nonspecific bowel gas pattern. Fecal stasis cannot be excluded. Skeletal structures demonstrate diffuse age related osteopenia and degenerative changes including chronic dextroconvex scoliosis. Evidence of prior cholecystectomy and possible gastric bypass surgery. Impression: Nonspecific bowel gas pattern. Fecal stasis cannot be excluded. Electronically Signed by Fausto Jean MD 07/06/2018 08:24 A
[2018-07-06 09:06] LABS: BASO # 0.1 10^3/uL (0.0-0.2); BASO % 0.6 % (0.0-1.0); HEMATOCRIT 50.5 % (36.0-47.0); HEMOGLOBIN 16.4 g/dl (12.0-15.5); LYMPH # 1.8 10^3/uL (1.5-4.5); LYMPH % 18.4 % (24.0-44.0); MEAN CORPUSCULAR HGB CONC 32.5 g/dl (32.0-36.5); MEAN CORPUSCULAR VOLUME 92.3 fl (80.0-96.0); MONO # 0.7 10^3/uL (0.0-0.8); MONO % 7.2 % (0.0-5.0); NEUTROPHILS # 6.9 10^3/uL (1.8-7.7); NEUTROPHILS % 71.7 % (36.0-66.0); PLATELET COUNT, AUTOMATED 222 10^3/uL (150-450); RED BLOOD COUNT 5.47 10^6/uL (4.00-5.40); WHITE BLOOD COUNT 9.7 10^3/uL (4.0-10.0)
[2018-07-06 09:16] LABS: INR 1.4; PROTHROMBIN TIME 17.4 SECONDS (12.1-14.4)
[2018-07-06 09:23] LABS: ALBUMIN 3.1 GM/DL (3.2-5.2); BILIRUBIN,DIRECT 0.7 MG/DL (0.0-0.2); BILIRUBIN,TOTAL 2.3 MG/DL (0.2-1.0); CALCIUM LEVEL 8.8 MG/DL (8.8-10.2); CREATININE FOR GFR 2.24 MG/DL (0.55-1.30); GLOMERULAR FILTRATION RATE 21.9 (>32); MB/CK RELATIVE INDEX 2.6 (< OR =4); POTASSIUM SERUM 5.7 MEQ/L (3.5-5.1); TOTAL PROTEIN 6.8 GM/DL (6.4-8.2); TROPONIN I 0.1 NG/ML (< 0.10)
[2018-07-06] MEDS: NS 1,000 ML IV SCH ×2 (09:26→16:08)
--- NOTE | 2018-07-06 09:55 | REP ---
Clinical: Intractable vomiting. Technique: Axial noncontrast images from the thoracic inlet to the upper abdomen eighth coronal and sagittal re-formations. Comparison: 01/08/2005. Findings: Lung linton demonstrate diffuse age-related chronic interstitial changes and scattered scarring along with findings to suggest chronic pulmonary hypertension. 8 mm focal density in the left upper lobe (image 28) is nonspecific and likely represents chronic change but pulmonary nodule cannot be excluded. No consolidation. No pleural effusion. No pneumothorax. Extensive atherosclerotic changes to the thoracic aorta, coronary arteries, and mitral valve annulus along with cardiomegaly is appreciated. Surrounding musculoskeletal structures without focal osseous abnormality. Impression: 1. Cardiomegaly and chronic avascular congestion as well as chronic-appearing pulmonary hypertension. 2. Lung linton demonstrate diffuse chronic interstitial changes along with scattered scarring. 3. 8 mm and 5 mm focal densities in the left upper lobe likely represent chronic change but pulmonary nodule cannot be excluded. Follow-up examination in 3 - 6 months may be warranted. Electronically Signed by Fausto Jean MD 07/06/2018 09:47 A
--- NOTE | 2018-07-06 09:59 | REP ---
Clinical: Intractable vomiting. Technique: Axial noncontrast images from the lung bases to the pubic symphysis with coronal and sagittal re-formations. Comparison: 04/29/2015. Findings: Refer to chest CT for complete evaluation of the chest and lung bases. Small amount of pneumobilia is appreciated. The patient is noted to be status post cholecystectomy. Liver, spleen, pancreas, bilateral adrenal glands and kidneys are relatively normal / stable. The enteric system is without obstruction or acute inflammatory process although moderate fecal stasis is suggested. Colonic diverticulosis noted without acute diverticulitis. Pelvis demonstrates normal bladder and age-appropriate uterus/adnexa. No ascites. No free air. No obvious adenopathy. Atherosclerotic changes of the aorta and vasculature noted without aneurysm. Musculoskeletal structures demonstrate advanced degenerative changes without focal osseous abnormality. Impression: 1. Moderate fecal stasis is suggested. No obstruction or obvious acute anterior colonic process appreciated. 2. Diverticulosis without acute diverticulitis. 3. Small amount of pneumobilia improved from prior examination. 4. No acute abdominopelvic pathology otherwise appreciated. Electronically Signed by Fausto Jean MD 07/06/2018 09:51 A
[2018-07-06] MEDS ORDERED: CALCIUM CHLORIDE 10% 1 GM/10 ML SYR IV STA (10:06)
[2018-07-06] MEDS ORDERED: SODIUM BICARBONATE 8.4% INJ 50 ML SYRINGE IV STA (10:08)
[2018-07-06] MEDS ORDERED: PATIROMER SORBITEX CALCIUM 8.4 GM POWDER PACKET (VELTASSA) PO ONE (10:15)
[2018-07-06] MEDS ORDERED: VITMTA PO (10:25)
[2018-07-06] MEDS ORDERED: DEXTROSE 50% 50 ML SYRINGE IV STA (10:30)
[2018-07-06] MEDS ORDERED: HumuLIN R (REGULAR) INSULIN (NovoLIN R) **100U/ML** PER UNIT IV ONE (10:30)
[2018-07-06 10:46] LABS: ABG BASE EXCESS -4.1 (-2.0-2.0); ABG HCO3 19.7 MEQ/L (22.0-26.0); ABG O2 SATURATION 93.9 % (95.0-99.0); ABG PARTIAL PRESSURE O2 77.9 mmHg (75.0-100.0); ABG STANDARD HCO3 21.1 MEQ/L (22.0-26.0); ABG TOTAL CO2 20.7 MEQ/L (23.0-31.0); ABG pH (ARTERIAL) 7.394 UNITS (7.350-7.450)
[2018-07-06] MEDS ORDERED: ACETAMINOPHEN TAB 650MG DOSE (2X325MG) PO PRN ×2 (12:00→17:15)
[2018-07-06] MEDS ORDERED: TORSEMIDE 20 MG TAB PO PRN (12:15)
--- NOTE | 2018-07-06 12:43 | HPEPDOC ---
General Date of Admission Primary Care Physician: YNES BOURGEOIS DO Attending Physician: BRADLEY KYLE MD Chief Complaint The patient is a 88-year-old female admitted with a reason for visit of Leona gomes. Source: Family Exam Limitations: Clinical conditions, Dementia History of Present Illness This is a 88 years old, white female with past medical history of dementia, severe aortic stenosis, mitral regurgitation: not a surgical candidate, pulmonary hypertension and severe dementia, came to ER with chief complaints of nausea, vomiting and abdominal pain along with loose bowel movements since last 2 days. History obtained from patient's daughter as patient has advanced dementia and secondary to her present clinical status, she is unable to provide me any history. As per daughter, patient is slowly becoming very lethargic, not eating or drinking and vomiting if anything is given orally. Called by ER to admit patient secondary to her high BUN/creatinine high potassium with high lactate, but no source of infection Patient also received a liter of IV bolus followed by normal saline 100 mL per hour. In the ED for hypotension without any resolution Home Medications Scheduled (Dorzolamide HCl/Timolol M 22.3-6.8 mg/ml) 1 Tracee Tracee, 1 DROP OU BID, (Reported) Aspirin (Aspirin 81) 81 Mg Tab, 81 MG PO DAILY, (Reported) Lactase (Dairy Relief) 3,000 Unit Tab, 3,000 UNIT PO QPM, (Reported) Latanoprost (Xalatan) 0.005 % Tracee, 1 DROP OU QHS, (Reported) Levothyroxine Sodium (Synthroid) 25 Mcg Tab, 25 MCG PO DAILY, (Reported) Multivitamins *[facility] STOCKED* (Thera M Plus *[facility] STOCKED*) 1 Tab Tab, 1 TAB PO DAILY, (Reported) Omeprazole (Omeprazole Dr) 20 Mg Cap, 20 MG PO BID, (Reported) Torsemide (Torsemide) 20 Mg Tab, 40 MG PO DAILY, (Reported) Scheduled PRN Torsemide (Torsemide) 20 Mg Tab, 20 MG PO QPM PRN for SWELLING, (Reported) Allergies Coded Allergies: bee venom protein (honey bee) (Verified Allergy, Severe, SWOLLEN, 07/06/18) pregabalin (Verified Adverse Reaction, Intermediate, PARANOIA, 07/06/18) Past Medical History Medical History Dementia, aortic stenosis, pulmonary hypertension, mitral regurgitation Surgical History Cholecystectomy Family History Significant Family History: Noncontributory Social History * Smoker: Denies Review of Systems Constitutional: Reports: Other (unable to obtained revealed system secondary to advanced dementia and patient's mental status) Physical Examination Eye Exam: Positive: Conjunctiva & lids normal, EOMI Neck Exam: Positive: Supple, JVD Chest Exam: Positive: Other (bilateral basilar crackles audible) Heart Exam: Positive: Tachycardic, Murmurs Telemetry: Positive: Sinus, SV Tach, PVCs, PACs Abdomen Exam: Positive: Normal bowel sounds, Soft Extremity Exam: Positive: Clubbing, Cyanosis, Edema Vital Signs Vital Signs Date Time Temp Pulse Resp B/P (MAP) Pulse Ox O2 Delivery O2 Flow Rate FiO2 07/06/18 11:22 126 89 07/06/18 11:15 83/67 (72) 07/06/18 07:49 98.5 16 Room Air Laboratory Data Labs 24H Laboratory Tests 2 07/06/18 08:42: Immature Granulocyte % (Auto) 2.1, White Blood Count 9.7, Red Blood Count 5.47H, Hemoglobin 16.4H, Hematocrit 50.5H, Mean Corpuscular Volume 92.3, Mean Corpuscular Hemoglobin 30.0, Mean Corpuscular Hemoglobin Concent 32.5, Red Cell Distribution Width 14.1, Platelet Count 222, Neutrophils (%) (Auto) 71.7H, Lymphocytes (%) (Auto) 18.4L, Monocytes (%) (Auto) 7.2H, Eosinophils (%) (Auto) 0.0, Basophils (%) (Auto) 0.6, Neutrophils # (Auto) 6.9, Lymphocytes # (Auto) 1.8, Monocytes # (Auto) 0.7, Eosinophils # (Auto) 0.0, Basophils # (Auto) 0.1, Nucleated Red Blood Cells % (auto) 0.2H, Prothrombin Time 17.4H, Prothromb Time International Ratio 1.40, Anion Gap 12, Glomerular Filtration Rate 21.9L, Lactic Acid Level 4.4*H, Calcium Level 8.8, Aspartate Amino Transf (AST/SGOT) 172H, Alanine Aminotransferase (ALT/SGPT) 217H, Alkaline Phosphatase 136H, Total Bilirubin 2.3H, Direct Bilirubin 0.7H, Total Creatine Kinase 96, Creatine Kinase MB 2.0, Creatine Kinase MB Relative Index 2.60, Troponin I 0.10, Total Protein 6.8, Albumin 3.1L, Albumin/Globulin Ratio 0.84L, Lipase 495H 07/06/18 10:37: Blood Gas Bicarbonate Standard 21.1L, Arterial Blood pH 7.394, Arterial Blood Partial Pressure CO2 33.0L, Arterial Blood Partial Pressure O2 77.9, Arterial Blood Total CO2 20.7L, Arterial Blood HCO3 19.7L, Arterial Blood Base Excess - 4.1L, Arterial Blood Oxygen Saturation 93.9L 07/06/18 11:07: CBC/BMP Laboratory Tests 07/06/18 08:42 Red Blood Count 5.47 H, Mean Corpuscular Volume 92.3, Mean Corpuscular Hemoglobin 30.0, Mean Corpuscular Hemoglobin Concent 32.5, Red Cell Distribution Width 14.1, Neutrophils (%) (Auto) 71.7 H, Lymphocytes (%) (Auto) 18.4 L, Monocytes (%) (Auto) 7.2 H, Eosinophils (%) (Auto) 0.0, Basophils (%) (Auto) 0.6, Neutrophils # (Auto) 6.9, Lymphocytes # (Auto) 1.8, Monocytes # (Auto) 0.7, Eosinophils # (Auto) 0.0, Basophils # (Auto) 0.1 Microbiology Microbiology 07/06/18 Blood Culture, Received Pending 07/06/18 Blood Culture, Received Pending Problems (1) MORENITA (acute kidney injury) Status: Acute Problem Text: 88 years old, white female with past medical history of multiple medical problems. She is DNR as per patient's daughter also has a history of dementia, aortic stenosis, mitral regurgitation, not a surgical candidate for cardiac procedures in the past. Pulmonary hypertension is being admitted secondary to high BUN/creatinine and high potassium. Also, patient was found to have a high lactate 4.4 without any source of infection. Patient developed crampy abdominal pains, nausea, vomiting since 2 days ago The patient to [facility] with telemetry monitoring Strict I and O's Continuous pulse ox Cardiac telemetry monitoring O2 support Continue home meds Nothing by mouth except meds Continue IV fluids normal saline at 100 mL per hour with close observation secondary to history of diastolic heart failure and severe aortic stenosis in this patient Patient is hypotensive with tachyarrhythmias. Eyes discussed with Dr. garcia, he will evaluate patient in ED and recommend any further cardiac recommendations Discussed with patient's daughter, patient is DNR. We will continue patient's home medication. In the meantime, we will closely follow patient and manage treatment accordingly (2) Tachyarrhythmia Problem Text: consultation was called and will await further recommendations from cardiology (3) Hyperkalemia Status: Acute Problem Text: Patient received calcium in the ED along with insulin and D50 Unable to read any hypoglycemic EKG changes secondary to baseline arrhythmias Will repeat CMP and lactic acid in an hour (4) Lactic acidosis Status: Acute Problem Text: Etiology unknown but most likely could be secondary to acute kidney injury We will repeat lactate and also will get a pro-calcitonin to rule out any infection cause Plan / VTE VTE Prophylaxis Ordered?: Yes BRADLEY KYLE MD Jul 06, 2018 12:43
--- NOTE | 2018-07-06 14:05 | CR ---
DATE OF CONSULTATION: 07/06/2018 REFERRING PHYSICIAN: Dr. Devon Benito of the hospitalist service. INDICATION: Hypotension, atrial fibrillation. HISTORY OF PRESENT ILLNESS: Mrs. Eastman is an 88-year-old female, who is known to me from outpatient setting. She has combined aortic and mitral valvular disease and was not felt to be a surgical candidate. In the last several months, she has been slowly losing weight, and according to the [id number] who is at bedside there has been slowly progressive mental decline. The situation got much worse in the last week, again according to her [id number]-[id number]-aje, there was minimal oral intake. She had a few episodes of vomiting and eventually the situation reached the point that she decided to bring her for hospitalization earlier today after the patient was very weak, was unable to ambulate and spent virtually all of the time sleeping. On initial evaluation, she was found to be quite hypotensive with the blood pressure initially actually recorded 121/84, but then the second measurement was only 87/58. ECG revealed presence of atrial fibrillation and left bundle branch block which is new compared to the old data. By this time she was given approximately 1.2 liters of fluid, and when I saw the patient, she was somewhat somnolent but arousable and when aroused answered questions completely appropriately as far as the orientation to her person. She did not know the date and she did not know where she was, but she denied any chest pain, shortness of breath, palpitations, nausea or abdominal pain. PAST MEDICAL HISTORY: 1. Combined aortic and mitral valve disease with severe aortic stenosis and severe mitral insufficiency based on echocardiogram 2017, felt not to be a surgical candidate. 2. Dementia. 3. Failure of thrives with progressive weight loss. SURGICAL HISTORY: Cholecystectomy. OUTPATIENT MEDICATIONS: - aspirin 81 mg a day - Xalatan eye drops - levothyroxine 25 mcg a day - multivitamin - omeprazole 20 mg twice a day - torsemide 40 mg day FAMILY HISTORY: No longer relevant. SOCIAL HISTORY: Patient lives with her family of her son and during the day is under day care. Her codvpbbj-ap-nyy her principal caregiver and her healthcare proxy. PHYSICAL EXAMINATION: Elderly, frail woman, does not appear to be any distress. The last documented blood pressure was only 80/60, heart rate between 100-110s. It is atrial fibrillation with narrow QRS complex alternating with runs of left bundle branch block. I cannot reliably distinguish nonsustained ventricular tachycardia versus aberrancy. Saturation was 92% and weight was documented at 42 kg. Her jugular venous pulse (JVP) is not high by my physical exam. It is just barely visible during expiration. Lungs are reasonably clear. No crackles or rhonchi or wheezing is appreciated. Heart exam reveals irregular rhythm. There is a harsh murmur over the aortic valve radiating towards her neck. There is also blowing murmur at the axilla. Abdomen is very cachectic. There are scars after prior laparotomy. Soft. No guarding. There is some tenderness in left upper quadrant. No rebound tenderness. Bowel sounds are present. Extremities are free of edema. Neurologically, she is somnolent but she is easily arousable and answers questions. No focal deficit per se. LABORATORY DATA: WBC count 9.7, hemoglobin 16.4, hematocrit 50.5, platelet count is 222,000. Basic metabolic panel from 08:42 this morning, sodium 136, potassium 5.7, BUN 63, creatinine 2.2, and glucose 149. Lactic acid was 4.4. Liver function tests are elevated with AST 172, ALT 217. Troponin 0.1. Albumin is 3.1. Lipase is elevated at 495. INR was 1.4. ABGs at 10:37, pH 7.39, pCO2 33, pO2 78 and saturation 94%. ECG revealed atrial fibrillation with rapid ventricular rate and left bundle branch block. Chest x-ray is consistent with cardiomegaly. There are no pleural effusions but chronic-appearing vascular congestion is noted. CT of the abdomen did not reveal any acute pathology. There is extensive atherosclerosis of both thoracic and abdominal aorta. ASSESSMENT AND PLAN: Mrs. Eastman is an 88-year-old female, who has dementia that has been progressive over time, who presented with approximately 1-week history of minimal oral intake with intermittent vomiting. The initial blood pressure measurement was relatively normotensive but she has been quite hypotensive since, and the rhythm reveals atrial fibrillation with heart rate in 110s alternating with wide complex rhythm. I cannot completely rule out that this is only a aberrant conduction during episodes of tachycardia but alternatively could also represent runs of nonsustained ventricular tachycardia. In my opinion, this is a progression of her failure to thrive. According to her kgwpajrv-xz-bag, she lost a lot of weight lately and she was very frail to start with. It is probable that the nausea and vomiting at some point led to development of atrial fibrillation which caused low cardiac output in setting of severe aortic stenosis and severe mitral insufficiency and renal failure. She is clearly very hemoconcentrated as evidenced by very high hemoglobin and the initial step should be very vigorous rehydration. I do not believe that she would tolerate or should be given any therapies addressing her tachycardia or atrial fibrillation. My plan would be comfort care provided she would not respond to volume resuscitation. I am afraid that because her underlying cardiac pathology is not correctable there is not much else what we can do in order to correct her cardiac status. I expressed this opinion to her [id number] and explained that I unfortunately am quite apprehensive that the outcome here will not be favorable. She expressed understanding, and patient is DO NOT INTUBATE, DO NOT RESUSCITATE and she apparently on numerous occasions clearly stated that she would not want to have any heroic measures undertaken in similar situations. VIDYA
[2018-07-06 14:38] LABS: CALCIUM LEVEL 8.9 MG/DL (8.8-10.2); CREATININE FOR GFR 1.92 MG/DL (0.55-1.30); GLOMERULAR FILTRATION RATE 26.2 (>32); MAGNESIUM LEVEL 2.6 MG/DL (1.8-2.4); POTASSIUM SERUM 4.7 MEQ/L (3.5-5.1)
[2018-07-06 15:30] VITALS: BP 80/40
[2018-07-06] MEDS: ONDANSETRON 4MG/2ML VIAL (J2405) IV PRN (16:12)
[2018-07-06] MEDS ORDERED: NS 250 ML IV ONE (17:00)
[2018-07-06 20:00] VITALS: BP_SYST 53; BP_SYST 58; BP_DIAS 0
[2018-07-06] MEDS ORDERED: HEPARIN SOD (PORCINE) 5000 UNITS/ML VIAL SC SCH (21:00)
[2018-07-06] MEDS ORDERED: LATANOPROST 0.005% OPHTH SOLN 2.5 ML OU SCH (21:00)
[2018-07-06] MEDS: HEPARIN SOD (PORCINE) 5000 UNITS/ML VIAL SQ SCH (21:47)
--- NOTE | 2018-07-06 22:18 | IPNPDOC ---
Date Seen The patient was seen on 07/06/18. Progress Note INTERIM PROGRESS NOTE Was called to the patient's room as nursing staff were unable to get BP except by doppler and it was in the 50s despite having received almost 2L fluids. The patient was seen by Dr. Lopez earlier today for consultation and family (son and [id number]) were in the room. Patient was responsive but was very drowsy. PE: Cardiac: RRR, no mumurs/rubs/gallops Lungs: Clear to auscultation bilaterally Extremities: only trace edema in lower extremities bilaterally I had a discussion with family about goals of care and end of life wishes. I explained how the patient was experiencing atrial fibrillation and RVR with possible LBBB but was not a candidate for antiarrhythmics. It was also explained that as she was not responsive to fluids, further escalation of care (transfer to ICU, central line, pressors, etc) was an option, but would not be comfortable for the patient. The family stressed that they wanted to keep her comfortable and not to overload her with fluids so that she would become excessively edematous, and thus uncomfortable. It was decided to change the patient's code status to COMFORT MEASURES ONLY. Family was all in agreement. VS, I&O, 24H, Fishbone Vital Signs/I&O Vital Signs Date Time Temp Pulse Resp B/P (MAP) Pulse Ox O2 Delivery O2 Flow Rate FiO2 07/06/18 20:00 98.0 127 20 91 07/06/18 15:30 80/40 (53) 07/06/18 15:26 Room Air Laboratory Data 24H LABS Laboratory Tests 2 07/06/18 08:42: Immature Granulocyte % (Auto) 2.1, White Blood Count 9.7, Red Blood Count 5.47H, Hemoglobin 16.4H, Hematocrit 50.5H, Mean Corpuscular Volume 92.3, Mean Corpuscular Hemoglobin 30.0, Mean Corpuscular Hemoglobin Concent 32.5, Red Cell Distribution Width 14.1, Platelet Count 222, Neutrophils (%) (Auto) 71.7H, Lymphocytes (%) (Auto) 18.4L, Monocytes (%) (Auto) 7.2H, Eosinophils (%) (Auto) 0.0, Basophils (%) (Auto) 0.6, Neutrophils # (Auto) 6.9, Lymphocytes # (Auto) 1.8, Monocytes # (Auto) 0.7, Eosinophils # (Auto) 0.0, Basophils # (Auto) 0.1, Nucleated Red Blood Cells % (auto) 0.2H, Prothrombin Time 17.4H, Prothromb Time International Ratio 1.40, Anion Gap 12, Glomerular Filtration Rate 21.9L, Lactic Acid Level 4.4*H, Calcium Level 8.8, Aspartate Amino Transf (AST/SGOT) 172H, Alanine Aminotransferase (ALT/SGPT) 217H, Alkaline Phosphatase 136H, Total Bilirubin 2.3H, Direct Bilirubin 0.7H, Total Creatine Kinase 96, Creatine Kinase MB 2.0, Creatine Kinase MB Relative Index 2.60, Troponin I 0.10, Total Protein 6.8, Albumin 3.1L, Albumin/Globulin Ratio 0.84L, Lipase 495H 07/06/18 10:37: Blood Gas Bicarbonate Standard 21.1L, Arterial Blood pH 7.394, Arterial Blood Partial Pressure CO2 33.0L, Arterial Blood Partial Pressure O2 77.9, Arterial Blood Total CO2 20.7L, Arterial Blood HCO3 19.7L, Arterial Blood Base Excess - 4.1L, Arterial Blood Oxygen Saturation 93.9L 07/06/18 11:07: Osmolality 323H 07/06/18 14:00: Anion Gap 11, Glomerular Filtration Rate 26.2L, Lactic Acid Level 3.5*H, Calcium Level 8.9, Blood Urea Nitrogen 63H, Creatinine 1.92H, Sodium Level 142, Potassium Level 4.7, Chloride Level 106, Carbon Dioxide Level 25, Magnesium Level 2.6H 07/06/18 18:36: Lactic Acid Followup at 4 Hours 3.1*H, Troponin I 0.12H CBC/BMP Laboratory Tests 07/06/18 08:42 Red Blood Count 5.47 H, Mean Corpuscular Volume 92.3, Mean Corpuscular Hemoglobin 30.0, Mean Corpuscular Hemoglobin Concent 32.5, Red Cell Distribution Width 14.1, Neutrophils (%) (Auto) 71.7 H, Lymphocytes (%) (Auto) 18.4 L, Monocytes (%) (Auto) 7.2 H, Eosinophils (%) (Auto) 0.0, Basophils (%) (Auto) 0.6, Neutrophils # (Auto) 6.9, Lymphocytes # (Auto) 1.8, Monocytes # (Auto) 0.7, Eosinophils # (Auto) 0.0, Basophils # (Auto) 0.1 07/06/18 14:00 Calcium Level 8.9 Microbiology Microbiology 07/06/18 Blood Culture, Received Pending 07/06/18 Blood Culture, Received Pending GME ATTESTATION GME ATTESTATION My faculty preceptor for this patient encounter was physically present during the encounter and was fully available. All aspects of the patient interview, examination, medical decision making process, and medical care plan development were reviewed and approved by the faculty preceptor. The faculty preceptor is aware and concurs with the plan as stated in the body of this note and will attest to such by his/her cosignature. KIARA DAVILA MD Jul 06, 2018 20:58
[2018-07-07] VITALS: BP 60/0
[2018-07-07] MEDS: NS 1,000 ML IV SCH (00:35)
[2018-07-07] MEDS: ONDANSETRON 4MG/2ML VIAL (J2405) IV PRN (02:48)
[2018-07-07 03:00] VITALS: BP 60/0
[2018-07-07] MEDS ORDERED: MORPHINE 4 MG/ML 1ML VIAL/SYRINGE (J2270) IV PRN (03:00)
[2018-07-07 05:47] LABS: ALBUMIN 2.6 GM/DL (3.2-5.2); BILIRUBIN,TOTAL 3.3 MG/DL (0.2-1.0); CALCIUM LEVEL 8.3 MG/DL (8.8-10.2); CREATININE FOR GFR 2.46 MG/DL (0.55-1.30); GLOMERULAR FILTRATION RATE 19.7 (>32); MAGNESIUM LEVEL 2.5 MG/DL (1.8-2.4); POTASSIUM SERUM 5.3 MEQ/L (3.5-5.1); TOTAL PROTEIN 5.7 GM/DL (6.4-8.2)
[2018-07-07] MEDS ORDERED: LEVOTHYROXINE 25MCG TABLET (0.025MG) PO SCH (06:00)
[2018-07-07] MEDS ORDERED: METOCLOPRAMIDE INJ 10MG/2ML VIAL (J2765) IV PRN (06:15)
[2018-07-07 06:30] VITALS: BP 98/0
[2018-07-07 07:30] LABS: HEMATOCRIT 45.9 % (36.0-47.0); HEMOGLOBIN 14.9 g/dl (12.0-15.5); MEAN CORPUSCULAR HEMOGLOBIN 30.3 pg (27.0-33.0); MEAN CORPUSCULAR HGB CONC 32.5 g/dl (32.0-36.5); MEAN CORPUSCULAR VOLUME 93.3 fl (80.0-96.0); PLATELET COUNT, AUTOMATED 179 10^3/uL (150-450); RED BLOOD COUNT 4.92 10^6/uL (4.00-5.40); WHITE BLOOD COUNT 14.2 10^3/uL (4.0-10.0)
[2018-07-07 08:00] VITALS: BP 92/50
[2018-07-07] MEDS: HEPARIN SOD (PORCINE) 5000 UNITS/ML VIAL SQ SCH (08:09)
[2018-07-07] MEDS ORDERED: ASPIRIN 81 MG ENTERIC TAB PO SCH (09:00)
[2018-07-07] MEDS ORDERED: TORSEMIDE 20 MG TAB PO SCH (09:00)
[2018-07-07] MEDS ORDERED: SCOPOLAMINE 1MG TRANSDERMAL PATCH TOP PRN (11:30)
--- NOTE | 2018-07-07 11:54 | IPN ---
DATE: 07/07/2018 Mrs. Eastman has not done very well overnight. She got a lot of hydration and her blood pressure ultimately improved, but unfortunately, she is at this point essentially anuric. She made about 120 mL of urine yesterday, so far she has not made any urine today. She has been agitated most of the night. She remains in atrial fibrillation with variable heart rate. Vital signs this morning, blood pressure 92/50, heart rate on average about 110s, afebrile. Saturation 92% on room air. Weight 45.1 kg. She is not alert, oriented at this point. I did not do a full physical exam because patient apparently was agitated all night and only now she was able to fall asleep. Laboratory herrera: CBC reveals hemoglobin 14.9, hematocrit 45 and platelet count 179,000. Basic metabolic panel: Sodium 141, potassium 5.3, BUN 74, creatinine 2.5, and glucose 90. ASSESSMENT AND PLAN: Mrs. Eastman is an 88-year-old female, who has underlying dementia and known valvular heart disease that include severe aortic stenosis and severe mitral insufficiency. She presented acutely dehydrated state with atrial fibrillation and rapid ventricular response (RVR), was profoundly hypotensive that eventually was corrected by vigorous hydration. She received over 3 liters of fluid yesterday, but unfortunately she developed acute renal failure, and at this point, in my opinion will not survive this situation without dialysis as she remains anuric. I had a discussion with her son and [id number] at bedside. Apparently it was consistent with her wishes that she did not want any heroic interventions and decision was made to make Mrs. Eastman comfort care only. I believe that it is in her best interest as she has underlying uncorrectable problem.
--- NOTE | 2018-07-07 13:25 | IPNPDOC ---
Date Seen The patient was seen on 07/07/18. Progress Note SUBJECTIVE: This is a 88 years old, white female with past medical history of severe dementia, severe aortic stenosis, mitral regurgitation: not a surgical candidate, afib and pulmonary hypertension, who was brought to the ER with chief complaints of nausea, vomiting and abdominal pain along with loose bowel movements since last 2 days. She was to be in afib with rvr, s/p ivf 3L ns , but has been oliguric /anuric, MORENITA and signs of possible liver failure as well (transaminitis). She is more confused than her baseline per daughter at bedside. This morning when I saw her , her daughter was out the door speaking with the nurse and I and when we got back inn the room, she was bleeding from an IV access she pulled out. SHe was also trying to get out of bed even though complaining that she was dizzy. Her bp has been also running low. The daughter expressed that the patient is DNR/DNI and they are thinking of making her comfort care, but they wanted to speak with Dr. Lopez before making a decision. After discussion with Dr. Lopez they decided to make her comfort care as well. OBJECTIVE PHYSICAL EXAMINATION: VITAL SIGNS: Please see below. Physical exam Gen: NAD, thin and confused, HEENT: normocephalic, atraumatic, no discharge from ears or nose, no oropharyngeal erythema or exudate, neck is supple, no lymphadenopathy, trachea midline CVS: RRR, normal S1n S2, systoilic murmur in 2nd intercostal space, rubs, or gallops, no edema, no jvd Resp: LCTAB, no rhonchi, wheezes or crackles Abd : soft nontender, normal bowel sounds, no rebound tenderness or guarding MSK: no swelling,generalized weakness , but moves extremities without any difficulties or signs of deficits Neuro: + confusion, no focal deficit Psych: mood swings between agitation and fatigue, poor judgment LABORATORY DATA, IMAGING STUDIES, MICROBIOLOGY: Please see below.- reviewed ASSESSMENT AND PLAN: Severe dementia// severe aortic stenosis// mitral regurgitation// afib// pulmonary hypertension//MORENITA//transaminitis comfort care measures DNR/dni comfort measure orders are in allow patient to have a liberated diet- eat whatever she wants ok without IV access no blood draws unless family requests dc iv meds and other necessary meds DISPOSITION: inpatient hospice care - prognosis - poor VS, I&O, 24H, Fishbone Vital Signs/I&O Vital Signs Date Time Temp Pulse Resp B/P (MAP) Pulse Ox O2 Delivery O2 Flow Rate FiO2 07/07/18 08:00 97.7 144 18 92/50 (64) 92 07/06/18 15:26 Room Air I&O- Last 24 Hours up to 6 AM 07/07/18 06:00 Intake Total 3350 ml Output Total 120 ml Balance 3230 ml Laboratory Data 24H LABS Laboratory Tests 2 07/06/18 14:00: Anion Gap 11, Glomerular Filtration Rate 26.2L, Lactic Acid Level 3.5*H, Blood Urea Nitrogen 63H, Creatinine 1.92H, Sodium Level 142, Potassium Level 4.7, Chloride Level 106, Carbon Dioxide Level 25, Calcium Level 8.9, Magnesium Level 2.6H 07/06/18 18:36: Lactic Acid Followup at 4 Hours 3.1*H, Troponin I 0.12H 07/06/18 22:42: Troponin I 0.06# 07/07/18 05:06: Nucleated Red Blood Cells % (auto) 1.4H 07/07/18 05:08: Anion Gap 12, Glomerular Filtration Rate 19.7L, Blood Urea Nitrogen 74H, Creatinine 2.46H, Sodium Level 141, Potassium Level 5.3H, Chloride Level 108H, Carbon Dioxide Level 21, Calcium Level 8.3L, Aspartate Amino Transf (AST/SGOT) 493H, Alanine Aminotransferase (ALT/SGPT) 566H, Alkaline Phosphatase 171H, Total Bilirubin 3.3H, Total Protein 5.7L, Albumin 2.6L, Magnesium Level 2.5H, Albumin/Globulin Ratio 0.84L, Lipase 468H CBC/BMP Laboratory Tests 07/06/18 14:00 Calcium Level 8.9 07/07/18 05:06 Red Blood Count 4.92, Mean Corpuscular Volume 93.3, Mean Corpuscular Hemoglobin 30.3, Mean Corpuscular Hemoglobin Concent 32.5, Red Cell Distribution Width 14.3 07/07/18 05:08 Calcium Level 8.3 L, Aspartate Amino Transf (AST/SGOT) 493 H, Alanine Aminotransferase (ALT/SGPT) 566 H, Alkaline Phosphatase 171 H, Total Bilirubin 3.3 H, Total Protein 5.7 L, Albumin 2.6 L Microbiology Microbiology 07/06/18 Blood Culture - Preliminary, Resulted No growth after 24 hours . All specim... 07/06/18 Blood Culture - Preliminary, Resulted No growth after 24 hours . All specim... JB LO MD Jul 07, 2018 13:25
[2018-07-07 14:58] VITALS: BP 88/52
--- NOTE | 2018-07-08 05:35 | ECGEPIP ---
Stationary ECG Study [facility] - ED Test Date: 2018-07-06 Pat Name: SAE OTT Department: Room: - Gender: F Truck Driver Flatbed: : 1930 Requested By: Magalie Madison Order Number: [id number] Reading MD: Marquis Ness Measurements Intervals [place] Rate: 106 P: MI: 0 QRS: -71 QRSD: 146 T: 105 QT: 392 QTc: 521 Interpretive Statements ATRIAL FIBRILLATION WITH RAPID VENTRICULAR RESPONSE MARKED LEFT AXIS DEVIATION LEFT BUNDLE BRANCH BLOCK, NEW COMPARED TO 07/26/16 RHYTHM/RATE CHANGE COMPARED TO 07/26/16 Electronically Signed On 07-08-2018 5:35:14 EDT by Marquis Ness
[2018-07-08] MEDS: MORPHINE SULFATE ORAL SOLN 10 MG/5 ML UD SL PRN ×5 (05:59→23:54)
[2018-07-08] MEDS: LORazepam 1 MG TAB PO PRN ×2 (09:41→14:08)
[2018-07-08] MEDS: ONDANSETRON 4 MG ORAL DISINTEGRATING TAB (Q0162 PER 1MG) SL PRN ×2 (09:41→14:08)
[2018-07-08] MEDS: MAALOX 30 ML SUSP *UDC PO PRN ×3 (12:10→23:53)
--- NOTE | 2018-07-08 18:10 | IPNPDOC ---
Date Seen The patient was seen on 07/08/18. Progress Note SUBJECTIVE: This is a 88 years old, white female with past medical history of severe dementia, severe aortic stenosis, mitral regurgitation: not a surgical candidate, afib and pulmonary hypertension, who was brought to the ER with chief complaints of nausea, vomiting and abdominal pain along with loose bowel movements since last 2 days. She was to be in afib with rvr, s/p ivf 3L ns , but has been oliguric /anuric, MORENITA and signs of possible liver failure as well (transaminitis). She is more confused than her baseline per daughter at bedside. Patient is dnr/dni and comfort care only, - no tube feed, no abx, no blood draws, no ivf- molst form in chart. This morning she was complaining of epigastric pain and gagging as if she wants to vomit, but did not vomit. per daughter this is chronic for many yrs OBJECTIVE PHYSICAL EXAMINATION: VITAL SIGNS: Please see below. Gen: NAD, thin and confused, HEENT: normocephalic, atraumatic, no discharge from ears or nose, neck is supple, CVS: irreg RR, normal S1n S2, systoilic murmur in 2nd intercostal space, rubs, or gallops, no edema, no jvd Resp: LCTAB, no rhonchi, wheezes or crackles Abd : soft, epigastric tender, normal bowel sounds, no rebound tenderness or guarding MSK: no swelling,generalized weakness , but moves extremities without any difficulties or signs of deficits Neuro: + confusion, no focal deficit Psych: mood swings between agitation and fatigue, poor judgment LABORATORY DATA, IMAGING STUDIES, MICROBIOLOGY: Please see below.- reviewed ASSESSMENT AND PLAN: Severe dementia// severe aortic stenosis// mitral regurgitation// afib// pulmonary hypertension//MORENITA//transaminitis comfort care measures DNR/dni allow patient to have a liberated diet- eat whatever she wants ok without IV access no blood draws unless family requests dc iv meds and other necessary meds added maalox prn for epigastric pain DISPOSITION: inpatient hospice care - prognosis - poor VS, I&O, 24H, Fishbone Vital Signs/I&O Vital Signs Date Time Temp Pulse Resp B/P (MAP) Pulse Ox O2 Delivery O2 Flow Rate FiO2 07/08/18 14:41 18 07/07/18 14:58 98.1 92 88/52 (64) 91 07/06/18 15:26 Room Air I&O- Last 24 Hours up to 6 AM 07/08/18 06:00 Intake Total 1020 ml Output Total 0 ml Balance 1020 ml Laboratory Data Microbiology Microbiology 07/06/18 Blood Culture - Preliminary, Resulted No Growth after 48 hours. All Specime... 07/06/18 Blood Culture - Preliminary, Resulted No Growth after 48 hours. All Specime... JB LO MD Jul 08, 2018 18:10
[2018-07-09] MEDS: ONDANSETRON 4 MG ORAL DISINTEGRATING TAB (Q0162 PER 1MG) SL PRN (02:48)
[2018-07-09] MEDS: LORazepam 1 MG TAB PO PRN ×2 (03:14→13:59)
[2018-07-09] MEDS: MORPHINE SULFATE ORAL SOLN 10 MG/5 ML UD SL PRN ×5 (03:14→16:25)
[2018-07-09 14:00] VITALS: BP 75/55
[2018-07-10] MEDS: LORazepam 1 MG TAB PO PRN ×4 (04:48→23:20)
[2018-07-10] MEDS: MORPHINE SULFATE ORAL SOLN 10 MG/5 ML UD SL PRN ×6 (09:15→23:14)
--- NOTE | 2018-07-10 18:47 | IPNPDOC ---
Subjective Date Seen The patient was seen on 07/10/18. Subjective Chief Complaint/HPI Subjective: 88 F with PMH dementia, severe aortic stenosis, MR, AFib brought in to due to nausea, vomiting and abdominal pain. patient continued to be in Afib w/ RVR with MORENITA worsening confusion. Family made DNR/DNI with comfort care only. Interval history: Patient was moaning and groaning currently receiving pain medications for comfort care. No labs were drawn and not receiving any IV antibiotics at this time. Family at bedside, trying to keep patient comfortable. Objective Physical Examination Eye Exam: Positive: Conjunctiva & lids normal, EOMI Neck Exam: Positive: Supple, JVD Chest Exam: Positive: Other (bilateral basilar crackles audible) Heart Exam: Positive: Tachycardic, Murmurs Telemetry: Positive: Sinus, SV Tach, PVCs, PACs Abdomen Exam: Positive: Normal bowel sounds, Soft Extremity Exam: Positive: Clubbing, Cyanosis, Edema Other physical findings General: Not fully alert, responsive but moan and groans Eyes: Normal sclera, ZOE HENT: Atraumatic, neck supple Cardiovascular: Normal S1/S2. Pulmonary: Decrease breath sounds. GI: Soft, nondistended Skin: Warm and dry Neuro: does not follow commands, unable to fully assess. Assessment /Plan Assessment ASSESSMENT AND PLAN: Severe dementia // severe aortic stenosis // mitral regurgitation// afib// pul monary hypertension//MORENITA//transaminitis Currently DNR/DNI Comfort measures only Pain Control. No blood draws, vital signs or IV Abx. Disposition: Inpatient hospice. Problems (1) MORENITA (acute kidney injury) Status: Acute Problem Text: 88 years old, white female with past medical history of multiple medical problems. She is DNR as per patient's daughter also has a history of dementia, aortic stenosis, mitral regurgitation, not a surgical candidate for cardiac procedures in the past. Pulmonary hypertension is being admitted secondary to high BUN/creatinine and high potassium. Also, patient was found to have a high lactate 4.4 without any source of infection. Patient developed crampy abdominal pains, nausea, vomiting since 2 days ago The patient to [facility] with telemetry monitoring Strict I and O's Continuous pulse ox Cardiac telemetry monitoring O2 support Continue home meds Nothing by mouth except meds Continue IV fluids normal saline at 100 mL per hour with close observation secondary to history of diastolic heart failure and severe aortic stenosis in this patient Patient is hypotensive with tachyarrhythmias. Eyes discussed with Dr. garcia, he will evaluate patient in ED and recommend any further cardiac recommendations Discussed with patient's daughter, patient is DNR. We will continue patient's home medication. In the meantime, we will closely follow patient and manage treatment accordingly Plan/VTE VTE Prophylaxis Ordered?: Yes VS, I&O, 24H, Fishbone Vital Signs/I&O Vital Signs Date Time Temp Pulse Resp B/P (MAP) Pulse Ox O2 Delivery O2 Flow Rate FiO2 07/09/18 16:55 14 07/09/18 14:00 96.7 104 75/55 (62) 96 07/06/18 15:26 Room Air I&O- Last 24 Hours up to 6 AM 07/10/18 06:00 Intake Total 0 ml Output Total 0 ml Balance 0 ml Laboratory Data Microbiology Microbiology 07/06/18 Blood Culture - Preliminary, Resulted No Growth after 72 hours. All specime... 07/06/18 Blood Culture - Preliminary, Resulted No Growth after 72 hours. All specime... STAR FINK MD Jul 10, 2018 18:47
[2018-07-11] MEDS: LORazepam 1 MG TAB PO PRN ×2 (01:26→03:28)
[2018-07-11] MEDS: MORPHINE SULFATE ORAL SOLN 10 MG/5 ML UD SL PRN ×2 (01:26→03:28)
--- NOTE | 2018-07-11 18:56 | DS.PDOC ---
Discharge Summary General Date of Admission Jul 06, 2018 at 12:00 Date of Discharge 07/11/18 Discharge Summary Summary: Time of : 05:28 AM on 07/11/18 Asians an 88-year-old female with past medical history of severe dementia, severe aortic stenosis and mitral regurgitation presented to ER with complaints of nausea, vomiting abdominal pain along with loose bowel movements for 2 days. Patient was noted to become more lethargic over the past days and has been significantly decrease in by mouth intake and vomits. Patient is found to be hypotensive in the ER and remained hypotensive. Due to patient's worsening clinical status and advanced age in setting of dementia, no aggressive interventions were performed per family's wishes. Patient was made comfort care only with pain medication as needed for comfort. Patient early this morning at 5:28 AM. Vital Signs/I&Os Vital Signs Date Time Temp Pulse Resp B/P (MAP) Pulse Ox O2 Delivery O2 Flow Rate FiO2 07/09/18 16:55 14 07/09/18 14:00 96.7 104 75/55 (62) 96 07/06/18 15:26 Room Air I&O- Last 24 Hours up to 6 AM 07/11/18 06:00 Intake Total 0 ml Output Total 0 ml Balance 0 ml Microbiology Microbiology 07/06/18 Blood Culture - Final, Complete NO GROWTH AFTER 5 DAYS 07/06/18 Blood Culture - Final, Complete NO GROWTH AFTER 5 DAYS Discharge Medications Scheduled Aspirin (Aspirin EC) 81 Mg Tab, 81 MG PO DAILY, (Reported) Dorzolamide HCl/Timolol Maleat (Dorzolamide-Timolol Eye Drops) 1 Tracee Tracee, 1 DROP OU BID, (Reported) Lactase (Dairy Relief) 3,000 Unit Tab, 3,000 UNIT PO QPM, (Reported) Latanoprost (Xalatan) 0.005 % Tracee, 1 DROP OU QHS, (Reported) Levothyroxine Sodium (Synthroid) 25 Mcg Tab, 25 MCG PO DAILY, (Reported) Multivitamins (Thera M Plus Tablet) 1 Tab Tab, 1 TAB PO DAILY, (Reported) Omeprazole (Omeprazole) 20 Mg Cap, 20 MG PO BID, (Reported) Torsemide (Torsemide) 20 Mg Tab, 40 MG PO DAILY, (Reported) Scheduled PRN Torsemide (Torsemide) 20 Mg Tab, 20 MG PO QPM PRN for SWELLING, (Reported) Allergies Coded Allergies: bee venom protein (honey bee) (Verified Allergy, Severe, SWOLLEN, 07/06/18) pregabalin (Verified Adverse Reaction, Intermediate, PARANOIA, 07/06/18) STAR FINK MD Jul 11, 2018 18:56
== END 2018-07-11 05:00 | disposition expired | DRG 682 ==
LOC: M ED 07:48 → M ED INP 12:00 → M PCU 15:30 → M MS5PR 07-07 14:32
PROVIDERS: ADMIT Internal Medicine; ATTEND Student in an Organized Health Care Education/Training Program
DX: N17.9 Acute kidney failure, unspecified (principal); K72.00 Acute and subacute hepatic failure without coma; E87.2 Acidosis; R64 Cachexia; F03.90 Unspecified dementia, unspecified severity, without behavioral disturbance, psychotic disturbance, mood disturbance, and anxiety; I08.0 Rheumatic disorders of both mitral and aortic valves; R57.1 Hypovolemic shock; I27.20 Pulmonary hypertension, unspecified; E87.5 Hyperkalemia; Z51.5 Encounter for palliative care; Z66 Do not resuscitate; Z79.82 Long term (current) use of aspirin; Z79.899 Other long term (current) drug therapy; Z91.030 Bee allergy status; Z88.8 Allergy status to other drugs, medicaments and biological substances